=== PATIENT | male | born 1975 | race African-American/Black ===

== ENCOUNTER 2017-09-25 08:42 | Inpatient (IN) | payer BC ==
[2017-09-23 16:42] VITALS: BMI 47.9
[~2017-09-25 08:42] MED LIST: BUPIVACAINE HCL/PF 0.5% (5MG/ML) 10 ML VIAL IJ ONE
[2017-09-25] MEDS ORDERED: ROCURONIUM BROMIDE 50 MG/5 ML VIAL ONE ×2 (10:03→11:16)
[2017-09-25] MEDS ORDERED: SUCCINYLCHOLINE CHLORIDE 200 MG/10 ML VIAL ONE (10:03)
[2017-09-25] MEDS ORDERED: DEXAMETHASONE SOD PHOSPHATE 4 MG/1 ML VIAL ONE (10:04)
[2017-09-25] MEDS ORDERED: LIDOCAINE HCL/PF 2% SDV 5ML VIAL ONE (10:04)
[2017-09-25] MEDS ORDERED: ONDANSETRON 4 MG/2 ML VIAL ONE (10:04)
[2017-09-25] MEDS ORDERED: KETOROLAC TROMETHAMINE 30 MG/1 ML VIAL ONE (10:04)
[2017-09-25] MEDS ORDERED: GLYCOPYRROLATE 0.2 MG/1 ML VIAL ONE ×2 (10:07→11:19)
[2017-09-25] MEDS ORDERED: NEOSTIGMINE METHYLSULFATE 0.5 MG/ML - 10 ML MDV ONE ×2 (10:11)
[2017-09-25] MEDS ORDERED: ONDANSETRON 4 MG/2 ML VIAL IVPUSH PRN (10:30)
[2017-09-25] MEDS ORDERED: LACTATED RINGERS SOLUTION 1,000 ML IV SCH (10:30)
--- NOTE | 2017-09-25 10:42 | HP ---
DATE OF ADMISSION: 09/25/2017 CHIEF COMPLAINT: Morbid obesity. HISTORY OF PRESENT ILLNESS: The patient is a 41-year-old gentleman with a history of morbid obesity for many years despite multiple attempts at dietary weight loss. He received nutritional, psychological, and cardiac evaluation and clearance prior to undergoing elective sleeve gastrectomy surgery. PAST MEDICAL HISTORY: Significant for hypertension and GE reflux disease. PAST SURGICAL HISTORY: Significant for a Lap-Band and then removal of band and a sleeve gastrectomy in the past. REVIEW OF SYMPTOMS: Neurologic: Within normal limits. Gastrointestinal: Subjective complaint of heartburn. Cardiovascular: Within normal limit. Musculoskeletal: Within normal limit. MEDICATIONS: Include hydrochlorothiazide daily, AcipHex twice a day, quinapril hydrochloride twice a day, and Cartia once a day. ALLERGIES: Patient has no known allergies. PHYSICAL EXAMINATION: General: Awake, alert, obese male. HEENT: No masses noted. Lungs: Clear bilaterally. Heart: Regular. Sinus rhythm. Abdomen: Well-healed trocar incisions. Soft, nontender on palpation. Positive for obesity. Extremities: Within normal limits. IMPRESSION: Morbid obesity. PLAN: I will offer laparoscopic sleeve gastrectomy, possible open sleeve gastrectomy if necessary. REYNA FOSTER M.D. [id number]
[2017-09-25] MEDS ORDERED: MIDAZOLAM HCL 2 MG/2 ML SINGLE DOSE VIAL ONE (10:52)
[2017-09-25] MEDS ORDERED: PROPOFOL 20 ML ONE ×2 (10:54→11:07)
[2017-09-25] MEDS ORDERED: ceFAZolin SODIUM 1 GM VIAL IVPB ONE (11:11)
[2017-09-25] MEDS ORDERED: SODIUM CHLORIDE 0.9% P/F 10 ML VIAL IJ ONE (11:41)
[2017-09-25] MEDS ORDERED: ePHEDrine SULFATE 50 MG/1 ML AMPULE ONE (11:41)
[2017-09-25] MEDS ORDERED: BUPIVACAINE HCL/PF 0.5% (5MG/ML) 10 ML VIAL IJ ONE (12:50)
--- NOTE | 2017-09-25 13:05 | OP ---
Operative Note - Note: Operative Date: 09/25/17 Pre-Operative Diagnosis: Morbid Obesity. Hypertension. GE Reflux Disease Operation: Laparoscopic Vertical Sleeve Gastrectomy. Laparoscopic Lysis of Adhesions. Diagnostic Laparoscopy Findings: Large amount of adhesions surrounding stomach laterally and posteriorally secondary to previous surgery. Sleeve Gastrectomy performed with number [address] along lesser curvature Implants: none Post-Operative Diagnosis: Same as Pre-op (Abdominal Adhesions) Surgeon: Mark Larson Director Workforce Management: Paulo Stone Anesthesia: General Specimens Removed: Greater curve of stomach Estimated Blood Loss (mls): 50 Operative Report Dictated: Yes
[2017-09-25] MEDS ORDERED: BENZOIN/ALOE VERA/STORAX/TOLU 58 ML BOTTLE ONE (13:20)
[2017-09-25] MEDS ORDERED: METOCLOPRAMIDE HCL INJECTION 10 MG/2 ML VIAL ONE (13:33)
[2017-09-25] MEDS: METOCLOPRAMIDE HCL INJECTION 10 MG/2 ML VIAL IVPUSH SCH ×2 (13:34→18:52)
[2017-09-25 13:55] LABS: HEMATOCRIT 46.9 % (35.4-49); HEMOGLOBIN 15.5 GM/dL (11.7-16.9); MCH 30.8 pg (25.7-33.7); MCHC 33.1 g/dl (32.0-35.9); MEAN CELL VOLUME 93.1 fl (80-96); MEAN PLT VOLUME 9.2 fl (7.5-11.1); PLATELET COUNT 171 K/MM3 (134-434); RBC 5.04 M/mm3 (4.00-5.60); RDW 13.7 % (11.9-15.9); WHITE BLOOD COUNT 8.4 K/mm3 (4.0-10.0)
--- NOTE | 2017-09-25 14:19 | OP ---
DATE OF OPERATION: 09/25/2017 PREOPERATIVE DIAGNOSES: 1. Morbid obesity. 2. Hypertension. 3. Gastroesophageal reflux disease. POSTOPERATIVE DIAGNOSES: 1. Morbid obesity. 2. Hypertension. 3. Gastroesophageal reflux disease. 4. Abdominal adhesion. PROCEDURES PERFORMED: 1. Laparoscopic vertical sleeve gastrectomy. 2. Laparoscopic lysis of adhesions. 3. Diagnostic laparoscopy. OPERATING SURGEON: Mark Larson MD MANAGER DRIVE: Paulo Stone MD ANESTHESIA: General. OPERATIVE PROCEDURE: The patient was brought into the operating room and placed on the OR table in the supine position. All precautions were taken initially including padding for the back and the feet and Venodyne boots were placed on both lower extremities. At that point, the abdomen was prepped and draped in the usual manner. A Veress needle was placed in the midline above the umbilicus and a pneumoperitoneum was established. At that point, a No. 5 bladeless trocar was placed in the left upper quadrant under laparoscopic guidance and safely placed into the left upper quadrant. Using that as a guide, a No. 15 bladeless trocar was placed in the midline in the supraumbilical position and a No. 5 bladeless trocar in the right upper quadrant. At that point, another No. 5 bladeless trocar was placed in the left upper quadrant and the No. 5 in the left upper quadrant was now replaced with the No. 12 trocar in order to fit a larger camera. There were adhesions noted between the omentum and in the right upper quadrant midline near the falciform. These were lysed with dissection with the LigaSure device. Once they were completely lysed, all adhesions were free in the upper abdomen. At this point, a Radha liver retractor was placed in the epigastrium to retract the left lobe of the liver. The patient was then placed in 20-degree reverse Trendelenburg position. There were noted to be adhesions from the patient's previous surgery between the undersurface of the liver and the proximal portion of the stomach by the esophagogastric junction. These adhesions were lysed with sharp dissection with the laparoscopic scissor. Care was taken not to cause any injury to either the liver or the stomach wall. Once this was done, the stomach was now in better view and dissection was now going to begin for the sleeve gastrectomy. The pylorus was noted in the distal stomach and 6 cm proximally. Here, the operating surgeon lifted the stomach towards the anterior abdominal wall where the bilingual office assistant surgeon retracted gastrocolic ligament inferiorly. There were adhesions on the stomach wall from the patient's previous surgery. The LigaSure was used to dissect the gastrocolic ligament and the omentum off the stomach wall. Attempts to get into the lesser sac. Numerous attempts were made, but were difficult and could not be done because of the extensive scarring on the posterior wall of the stomach to the rectal perineum from the previous surgery. The pancreas was noted in view and the pancreas was very gently dissected lower down as the stomach wall posteriorly was exposed. Dissection now continued with the LigaSure up the greater curvature dissecting the omentum and any other vessels off of the stomach. Again this was tedious because of the amount of scarring both on the posterior surface and on the lateral surface of the stomach. In the area of the superior pole spleen, the final attachments between the omentum and the greater curvature were removed and now the greater curvature was now completely detached from all attachments. Attention was now directed to the posterior wall of the stomach where there continued to be a large amount of adhesions. The adhesions were easily dissected with blunt dissection with the laparoscopic instruments with the operating and the bilingual office assistant surgeon and also some sharp dissection was used. Once the stomach wall was now completely exposed, the anesthesiologist who had placed a No. 36 bougie prior to the case and left it in the upper stomach now advanced it to about 50 cm so that it was in the antrum and going towards the pylorus. At this point, a series of gabrielle were going to be performed in order to complete the sleeve gastrectomy procedure. The first 4 gabrielle were black load gabrielle initially because the stomach was thickened not only in the antrum, but also along most of the body. These staplers were started 6 cm proximal to the pylorus and continued in the superior and vertical direction along the No. 36 bougie. This continued until in the upper part of the stomach by the fundus where the wall was thinner purple gabrielle were used also 6 cm in length and also along the bougie. Once the final staple was fired in the left upper quadrant, the greater curvature was now completely detached from the rest of the stomach. It should be noted that prior to firing the stapler, care was taken that the posterior wall was checked, that the posterior and anterior mai were equal and the bougie was visible and it could be felt on both the anterior and posterior surfaces. Also an area in the esophagogastric junction approximately 1-1.5 cm of serosa remained on the anterior and posterior surfaces. With the greater curvature now removed from the stomach, Dr. Stone, the Occupational Psychologist Surgeon, stepped out and performed an upper endoscopy. The details will be described in his procedure note, but it should be noted that he saw no evidence of bleeding from the staple line inside and he was able to pass the endoscope all way down to the antrum and towards the pylorus showing that there was no signs of obstruction. Saline was placed around the staple line and when he blew air into the stomach and distended, no signs of the bubbles and therefore no signs of loose gabrielle. At this point, first the specimen removed through the No. 15 trocar site in the middle and sent off the field as a specimen to Pathology. The No. 15 trocar site then was closed with the Endo Closure Device to prevent internal hernia and to prevent bleeding. Under direct vision, all trocars were removed and pneumoperitoneum was released. All trocars sites 0.25% Marcaine. They were all closed with 4-0 Biosyn in subcuticular fashion. The No. 15 trocar site in the midline was first closed with 3-0 Vicryl in the subcutaneous tissue, followed by 4-0 Biosyn in subcuticular fashion. Dressings were applied. Patient awoke from anesthesia and transferred out of the operating room to the recovery room in stable condition. Expected blood loss was 50 mL. Patient was transferred to the recovery room in stable condition. [place] [id number]
[2017-09-25 14:45] LABS: ALBUMIN 3.6 g/dl (3.4-5.0); ANION GAP 8 (8-16); BLOOD UREA NITROGEN 18 mg/dL (7-18); CALCIUM 8.7 mg/dL (8.5-10.1); CHLORIDE 100 mmol/L (98-107); CO2 28 mmol/L (21-32); GLUCOSE,RANDOM 147 mg/dL (74-106); POTASSIUM 3.9 mmol/L (3.5-5.1); SODIUM 136 mmol/L (136-145)
[2017-09-25] MEDS: SODIUM CHLORIDE 1,000 ML IV SCH (14:48)
[2017-09-25 14:57] LABS: ALK PHOS 63 U/L (45-117); BILIRUBIN,TOTAL 0.8 mg/dL (0.2-1.0); CREATININE 1.3 mg/dL (0.7-1.3); SGOT/AST 33 U/L (15-37); SGPT/ALT 38 U/L (12-78); TOT PROT 6.9 g/dl (6.4-8.2)
[2017-09-25] MEDS: HYDROmorphone HCL CARPU-JECT 2 MG/1 ML DISP.SYRIN IVPB PRN ×2 (16:19→20:56)
--- NOTE | 2017-09-25 17:45 | OP ---
Operative Note - Note: Operative Date: 09/25/17 Pre-Operative Diagnosis: Evaluate for leak/obstruction s/p sleeve gastrectomy Operation: Upper endoscopy/EGD Post-Operative Diagnosis: Other (No leak/obstruction) Surgeon: Paulo Stone Measurement Advisor: Mark Larson Anesthesia: General Specimens Removed: None Estimated Blood Loss (mls): 0 Operative Report Dictated: Yes
[2017-09-25] MEDS: FAMOTIDINE 20 MG/50 ML IVPB 20 MG/50 ML MG IVPB SCH (21:01)
[2017-09-26] MEDS: METOCLOPRAMIDE HCL INJECTION 10 MG/2 ML VIAL IVPUSH SCH ×4 (02:29→18:18)
[2017-09-26] MEDS: HYDROmorphone HCL CARPU-JECT 2 MG/1 ML DISP.SYRIN IVPB PRN ×2 (02:48→07:04)
[2017-09-26] MEDS: SODIUM CHLORIDE 1,000 ML IV SCH ×5 (02:53→21:36)
--- NOTE | 2017-09-26 07:01 | OP ---
DATE OF OPERATION: 09/25/2017 SURGEON: Ramsey Stone MD PREOPERATIVE DIAGNOSIS: Rule out leaks/obstruction after sleeve gastrectomy. POSTOPERATIVE DIAGNOSIS: No leak/obstruction. PROCEDURE: Upper endoscopy/esophagogastroduodenoscopy. . SPECIMEN: None. ESTIMATED BLOOD LOSS: None. ANESTHESIA: GET. REASONS/PROCEDURE: This is a 41-year-old gentleman who was undergoing a laparoscopic vertical sleeve gastrectomy with Dr. Mark Larson. In order to evaluate for leak/obstruction and to evaluate the staple line, an upper endoscopy was requested, and the endoscope was inserted into the patients mouth. The entirety of the esophagus, GE junction, gastric patch, and staple line were inspected. Hemostasis was noted. No leak or obstruction was noted. The stomach was fully suctioned, and the endoscope removed. The remainder of the procedure was continued. RAMSEY STONE M.D. [id number]
[2017-09-26 07:33] LABS: HEMATOCRIT 45.5 % (35.4-49); HEMOGLOBIN 15.1 GM/dL (11.7-16.9); MCHC 33.1 g/dl (32.0-35.9); MEAN CELL VOLUME 93.6 fl (80-96); MEAN PLT VOLUME 9.3 fl (7.5-11.1); PLATELET COUNT 178 K/MM3 (134-434); RBC 4.86 M/mm3 (4.00-5.60); RDW 13.3 % (11.9-15.9); WHITE BLOOD COUNT 8.2 K/mm3 (4.0-10.0)
[2017-09-26 08:01] LABS: ALBUMIN 3.3 g/dl (3.4-5.0); ANION GAP 6 (8-16); BLOOD UREA NITROGEN 14 mg/dL (7-18); CALCIUM 8.5 mg/dL (8.5-10.1); CHLORIDE 104 mmol/L (98-107); CO2 31 mmol/L (21-32); CREATININE 1.1 mg/dL (0.7-1.3); GLUCOSE,RANDOM 106 mg/dL (74-106); POTASSIUM 4.5 mmol/L (3.5-5.1); SGOT/AST 24 U/L (15-37); SGPT/ALT 32 U/L (12-78); SODIUM 141 mmol/L (136-145)
[2017-09-26 08:04] LABS: ALK PHOS 60 U/L (45-117); BILIRUBIN,TOTAL 0.9 mg/dL (0.2-1.0); TOT PROT 6.7 g/dl (6.4-8.2)
[2017-09-26] MEDS: ENOXAPARIN NA (PORCINE) 40 MG/0.4 ML DISP.SYRIN SQ SCH ×2 (11:02→21:35)
[2017-09-26] MEDS: FAMOTIDINE 20 MG/50 ML IVPB 20 MG/50 ML MG IVPB SCH ×2 (11:02→21:35)
--- NOTE | 2017-09-26 11:25 | PN ---
Progress Note (short form) - Note Progress Note: Anesthesia postop note 41 y/o m s/p GA for laparoscopic gastric sleeve POD#!, vss, aaox3, no complaints. No anesthesia complications.
[2017-09-26] MEDS ORDERED: oxyCODONE HCL 5 MG TABLET ONE (16:14)
[2017-09-26] MEDS: oxyCODONE HCL 5 MG TABLET PO PRN ×2 (16:17→21:36)
--- NOTE | 2017-09-26 16:24 | PATH ---
Surgical Pathology Report Patient Name: JOSE NIETO [facility]. Rec. #: [id number] /Age/Gender: 1975 (Age: 41) / M Account: [id number] Location: 4 PEDS/ADOL Taken: 09/25/2017 Received: 09/25/2017 Reported: 09/26/2017 Physicians: Makr Larson M.D. Specimen(s) Received GREATER CURVATURE STOMACH Clinical History Morbid obesity Final Diagnosis STOMACH, GREATER CURVATURE, LAPAROSCOPIC VERTICAL SLEEVE GASTRECTOMY: PORTION OF STOMACH WITH MILD CHRONIC GASTRITIS. IMMUNOHISTOCHEMICAL STAIN FOR H. PYLORI IS NEGATIVE. Electronically Signed Maria Selby M.D. Gross Description Received in formalin, labeled "greater curvature of stomach," is a 70 gram, 16.5 x 3.0 x 2.8 cm. portion of stomach with a stapled margin of resection. The serosa is larsen-moreno with minimal attached fat. The mucosa is larsen-pink with normal folds. No mucosal masses are identified. Safety Glass Installer sections are submitted in one cassette. /09/25/2017 [facility]09/25/2017
--- NOTE | 2017-09-26 16:57 | PN ---
Progress Note (short form) - Note Progress Note: POD#1 Afebrile; VSS P-70-80 BP-131/78 Pt doing well No N/V Ashly PO clear liquids- 2 oz PO TID P/E- Abd- All trocar sites clean, dry no cellulitis, no erythema WBC-8.2 H/H-15.1/45.5 UGI-no extravasation, no obstruction Contrast delayed in fundus, but passes thru P- PO clear liquids- 2 oz po tid Cont DVT prophylaxis OOB-ambulate
[2017-09-27] MEDS: METOCLOPRAMIDE HCL INJECTION 10 MG/2 ML VIAL IVPUSH SCH ×4 (01:25→21:22)
[2017-09-27] MEDS: FAMOTIDINE 20 MG/50 ML IVPB 20 MG/50 ML MG IVPB SCH (09:37)
[2017-09-27] MEDS: ENOXAPARIN NA (PORCINE) 40 MG/0.4 ML DISP.SYRIN SQ SCH (09:37)
[2017-09-27] MEDS ORDERED: HYDROCHLOROTHIAZIDE 12.5 MG CAPSULE (FP) PO SCH (10:15)
[2017-09-27] MEDS ORDERED: QUINAPRIL HCL 40 MG TABLET (FP) PO SCH (10:15)
[2017-09-27] MEDS ORDERED: QUINAPRIL HCL 20 MG TABLET (FP) ONE (10:31)
[2017-09-27 10:55] LABS: HEMATOCRIT 47.5 % (35.4-49); HEMOGLOBIN 15.6 GM/dL (11.7-16.9); MCH 30.9 pg (25.7-33.7); MCHC 32.8 g/dl (32.0-35.9); MEAN CELL VOLUME 94.2 fl (80-96); MEAN PLT VOLUME 9.1 fl (7.5-11.1); PLATELET COUNT 171 K/MM3 (134-434); RBC 5.04 M/mm3 (4.00-5.60); RDW 13.4 % (11.9-15.9); WHITE BLOOD COUNT 6.8 K/mm3 (4.0-10.0)
[2017-09-27 11:21] LABS: ALBUMIN 3.8 g/dl (3.4-5.0); ANION GAP 6 (8-16); BLOOD UREA NITROGEN 13 mg/dL (7-18); CALCIUM 8.6 mg/dL (8.5-10.1); CHLORIDE 103 mmol/L (98-107); CO2 29 mmol/L (21-32); GLUCOSE,RANDOM 81 mg/dL (74-106); POTASSIUM 3.9 mmol/L (3.5-5.1); SGOT/AST 31 U/L (15-37); SODIUM 138 mmol/L (136-145); TOT PROT 7.3 g/dl (6.4-8.2)
[2017-09-27 11:43] LABS: ALK PHOS 63 U/L (45-117); SGPT/ALT 42 U/L (12-78)
--- NOTE | 2017-09-27 12:10 | PN ---
Progress Note (short form) - Note Progress Note: Chief Complaint: Events noted, notes reviewed, denies any chest discomfort or dyspnea, asymptomatic atrial flutter/atrial fibrillation History of Present Illness: Seen and examined on telemetry. Full consult dictated Echocardiography performed recently June 2017 revealed normal LV function with LVEF of 57%, LA dilatation 4.4 cm, trace/mild MR and TR MPI study performed recently June 2017 revealed no ischemia with dilated LV and LVEF of 49% - Current Medication List Current Medications Diltiazem HCl (Cardizem Cd -) 240 mg PO DAILY [facility] Last Admin: 09/27/17 10:34 Dose: 240 mg Enoxaparin Sodium (Lovenox -) 40 mg SQ BID@0800,2000 [facility] Last Admin: 09/27/17 09:37 Dose: 40 mg Hydrochlorothiazide (Hctz -) 12.5 mg PO DAILY [facility] Last Admin: 09/27/17 10:34 Dose: 12.5 mg Hydromorphone HCl (Dilaudid Injection -) 0.5 mg IVPB Q4H PRN PRN Reason: PAIN Last Admin: 09/26/17 07:04 Dose: 0.5 mg Famotidine/Sodium Chloride (Pepcid 20 Mg Premixed Ivpb -) 20 mg in 50 mls @ 100 mls/hr IVPB BID [facility] Last Admin: 09/27/17 09:37 Dose: 100 mls/hr Sodium Chloride (Normal Saline -) 1,000 mls @ 50 mls/hr IV ASDIR [facility] Last Admin: 09/26/17 21:36 Dose: 50 mls/hr Metoclopramide HCl (Reglan Injection -) 10 mg IVPUSH Q6H [facility] Last Admin: 09/27/17 06:10 Dose: 10 mg Ondansetron HCl (Zofran Injection) 4 mg IVPUSH Q6H PRN PRN Reason: NAUSEA AND/OR VOMITING Oxycodone HCl (Roxicodone -) 5 mg PO Q4H PRN PRN Reason: PAIN SCALE 5-10 Last Admin: 09/26/17 21:36 Dose: 5 mg Quinapril HCl (Accupril -) 40 mg PO BID [facility] Last Admin: 09/27/17 10:34 Dose: 40 mg Review of Systems Cardiovascular: As noted above Respiratory: denies: denies: Cough or Sputum Production Gastrointestinal: denies: Nausea, Vomiting, Diarrhea, Constipation or Abdominal Discomfort Musculoskeletal: No Symptoms Reported Endocrine: No Symptoms Reported - Objective Vital Signs: Last Vital Signs Temp Pulse Resp BP Pulse Ox 98.3 F 64 16 141/88 98 09/27/17 06:00 09/27/17 06:00 09/27/17 06:00 09/27/17 06:00 09/26/17 21:00 Intake & Output 09/24/17 09/25/17 09/26/17 09/27/17 23:59 23:59 23:59 23:59 Intake Total 2950 3650 609 Output Total 2305 1600 300 Balance 645 2050 309 Weight 366 lb 6 oz 363 lb 6.4 oz Constitutional: No Distress, Awake, Alert and Oriented Respiratory: Scattered Rhonchi Bilaterally Cardiovascular: S1 S2 Irregularly Irregular No Murmurs Clicks or Gallops Gastrointestinal: Soft Benign Normal Bowel Sounds Ext: No Edema Intact Distal Pulses No Calf Tenderness Labs: CBC, BMP 09/27/17 10:40 09/27/17 10:40 Hepatic Panel Total Bilirubin 1.0 mg/dL (0.2-1.0) 09/27/17 10:40 AST 31 U/L (15-37) D 09/27/17 10:40 ALT 42 U/L (12-78) D 09/27/17 10:40 Alkaline Phosphatase 63 U/L (45-117) 09/27/17 10:40 Albumin 3.8 g/dl (3.4-5.0) 09/27/17 10:40 Assessment/Plan Assessment: 1. Paroxysmal atrial flutter/atrial fibrillation [id number] score of 1, recurrent asymptomatic arrhythmia, possible vagal mediation (LA dilatation 4.4 cm) 2. LV dilatation with probable diastolic LV dysfunction and class 0 NYHA classifcation LV failure 3. HTN 4. Post Laparoscopic Vertical Sleeve Gastrectomy, Laparoscopic Lysis of Adhesions 5. History of gastric banding post revision 6. History of GERD 7. Morbid obesity PLAN: 1. Initiate B-Blockers with Lopressor, IV Lopressor as needed 2. IV Cardizem to assist with rate control and D/C PO Cardizem 3. Continue Accupril 4. Initiate A/C at t his point despite [id number] score of 1 since it is recurrent and asymptomatic, unless re-initiation is absolutely contraindicated 5. Repeat echocardiography to evaluate LV size and function Aminata Aguilar M.D.
--- NOTE | 2017-09-27 12:45 | PN ---
Progress Note (short form) - Note Progress Note: POD#2 Afebrile Was called at 10:00 AM for pt with very rapid heart rate (130-190) Pt with history of atrial fibrillation Pt was ambulating and was not symptomatic BP remained stable Card consult answered by Dr Figueroa Presently pulse 100-115, still irregular Pt tolerating PO- 3 OZ PO TID No N/V WBC-6.8 (decreased) H/H-15.6/47.5 (stable P - Arrythmia management as per Cardiology Will hold D/C home Clear liquids- 3 OZ PO TID Continue DVT prophylaxis
--- NOTE | 2017-09-27 12:58 | EKG ---
Test Reason : Blood Pressure : / mmHG Vent. Rate : 160 BPM Atrial Rate : 153 BPM P-R Int : 000 ms QRS Dur : 088 ms QT Int : 298 ms P-R-T Axes : 000 -48 021 degrees QTc Int : 486 ms ATRIAL FIBRILLATION WITH RAPID VENTRICULAR RESPONSE WITH PREMATURE VENTRICULAR OR ABERRANTLY CONDUCTED COMPLEXES LEFT ANTERIOR FASCICULAR BLOCK NONSPECIFIC ST ABNORMALITY ABNORMAL ECG WHEN COMPARED WITH ECG OF 14-AUG-2017 09:13, ATRIAL FIBRILLATION HAS REPLACED SINUS RHYTHM VENT. RATE HAS INCREASED BY 94 BPM T WAVE INVERSION NO LONGER EVIDENT IN INFERIOR LEADS CLINICAL CORRELATION IS RECOMMENDED Confirmed by CANDELARIO DECKER, CYRUS ([id number]) on 09/27/2017 12:57:38 PM Referred By: Mark Larson Confirmed By:CYRUS PALOMINO MD
[2017-09-27] MEDS ORDERED: METOPROLOL TARTRATE 25 MG TABLET (FP) PO ONE (13:15)
[2017-09-27] MEDS ORDERED: dilTIAZem HCL 50 MG/10 ML - 10 ML VIAL IVPUSH ONE (13:15)
--- NOTE | 2017-09-27 13:16 | CONS ---
DATE OF CONSULTATION: 09/27/2017 REQUESTING PHYSICIAN: Mark Larson MD CHIEF COMPLAINT: Evaluation of asymptomatic cardiac arrhythmia. HISTORY OF PRESENT ILLNESS: History was obtained from the patient. A 41-year-old, morbidly obese male of descent with known history of paroxysmal atrial fibrillation, currently on no anticoagulation therapy, CHADS2-VASc score of 1, hypertensive cardiovascular disease, left ventricular cavity dilatation with questionable diastolic left ventricular dysfunction, and class 0 [place] Heart [employer] classification left ventricular failure, morbid obesity post gastric banding, post revision, who was admitted electively for purpose of gastric sleeve surgery which was performed September 25, 2017. Today, patient was scheduled to be discharged home, and upon ambulation, developed sudden onset of tachyarrhythmia. Electrocardiogram was performed which revealed evidence of paroxysmal atrial flutter/atrial fibrillation with rapid ventricular response. Patient currently is seated in a chair and denies any palpitations or dizziness. Patient does not report any prior history of chest discomfort. Patient denies any dyspnea, orthopnea, paroxysmal nocturnal dyspnea, or peripheral edema. Patient stated that in May or June 2017, he was diagnosed with paroxysmal atrial fibrillation. At which point, he was initiated on Xarelto therapy which was subsequently discontinued since sinus rhythm was regained spontaneously. PAST MEDICAL HISTORY: Paroxysmal atrial fibrillation, CHADS2-VASc score of 1, currently on no anticoagulation therapy; hypertensive cardiovascular disease; left ventricular cavity dilatation with questionable diastolic left ventricular dysfunction; morbid obesity post gastric banding, post revision, post gastric sleeve surgery. SOCIAL HISTORY: Denies tobacco abuse. FAMILY HISTORY: No family history of premature coronary artery disease or history of cardiac arrhythmia. ALLERGIES: None reported. MEDICAL THERAPY: At home included Cardizem CD 240 mg once a day, hydrochlorothiazide 12.5 mg once a day, Accupril 40 mg twice a day, AcipHex 20 mg twice a day. REVIEW OF SYSTEMS: Head and Neck: Denies headache, photophobia, blurring of vision. Respiratory: No cough or sputum production. Cardiovascular: As noted above. Gastrointestinal: Denies nausea, vomiting, diarrhea, abdominal discomfort. Genitourinary: No symptoms reported. Musculoskeletal: No symptoms reported. PHYSICAL EXAMINATION: Vital Signs: Blood pressure is 141/88 mmHg, pulse rate currently is 140 beats per minute, temperature 98.3. Head and Neck: Pupils equal, reactive to light and accommodation. Extraocular muscles are intact. Anicteric sclerae. Negative JVD. No bruit appreciated. Chest: Clear to auscultation and percussion. Cardiovascular: S1, S2. Irregularly irregular. No murmur, clicks, or gallops. Abdomen: Soft, benign. Normoactive bowel sounds. Extremities: Negative edema. Intact distal pulses. No calf tenderness. DIAGNOSTIC DATA: Electrocardiogram as noted above reveals atrial flutter/atrial fibrillation with rapid ventricular response. CBC revealed white cell count 6.8, hemoglobin 15.6, platelet count 171. Basic metabolic profile revealed sodium 138, potassium 3.9, BUN 13, creatinine 1.0, glucose 81, with normal liver profile. ASSESSMENT: 1. Paroxysmal atrial flutter/atrial fibrillation, CHADS2-VASc score of 1, recurrent asymptomatic arrhythmia, possible vagal mediation, left atrial measurement of 4.4 cm on echocardiography performed June 2017. 2. Left ventricular cavity dilatation with probable diastolic left ventricular dysfunction and class 0 [place] [employer] classification left ventricular failure. 3. Hypertensive cardiovascular disease. 4. Post laparoscopic vertical sleeve gastrectomy, laparoscopic lysis of adhesions. 5. History of gastric banding, post revision. 6. History of gastroesophageal reflux disease. 7. Morbid obesity. RECOMMENDATION: 1. Initiation of beta-sonny therapy with Lopressor. IV Lopressor to be administered as needed for rate control. 2. IV Cardizem to assist with rate control and discontinue p.o. Cardizem. 3. Continuation of Accupril therapy. 4. Initiation of anticoagulation therapy at this point despite patient's CHADS2-VASc score of 1 since it is recurrent and asymptomatic unless re-initiation is absolutely contraindicated. 5. Repeat echocardiography for evaluation of left ventricular size and function and left atrial measurement. Above was discussed in detail with patient's primary chemist steroids, [facility], Dr. Ethan Coyne. Thank you for the kind referral. CYRUS PALOMINO M.D. SUSANNA/[id number]
[2017-09-27] MEDS: RIVAROXABAN 20 MG TABLET PO SCH (13:28)
[2017-09-27] MEDS ORDERED: PT OWN MED DRAWER 7, Y5N ONE (15:46)
[2017-09-27] MEDS: SODIUM CHLORIDE 1,000 ML IV SCH (21:22)
[2017-09-27] MEDS: METOCLOPRAMIDE HCL 10 MG TABLET (FP) PO SCH (21:37)
[2017-09-27] MEDS: METOPROLOL TARTRATE 25 MG TABLET (FP) PO SCH (21:37)
[2017-09-27] MEDS: RANITIDINE HCL 150 MG TABLET (FP) PO SCH (21:37)
[2017-09-28] MEDS: METOCLOPRAMIDE HCL 10 MG TABLET (FP) PO SCH ×4 (06:29→23:15)
[2017-09-28] MEDS ORDERED: METOPROLOL TARTRATE 5 MG/5 ML VIAL IVPUSH ONE (07:31)
--- NOTE | 2017-09-28 08:38 | PN ---
Progress Note (short form) - Note Progress Note: Chief Complaint: Events noted, notes reviewed, denies any chest discomfort or dyspnea, asymptomatic atrial flutter/atrial fibrillation persists with periods of rapid ventricular response History of Present Illness: Seen and examined on telemetry. Events noted, notes reviewed, denies any chest discomfort or dyspnea, asymptomatic atrial flutter/atrial fibrillation persists with periods of rapid ventricular response Echocardiography performed recently June 2017 revealed normal LV function with LVEF of 57%, LA dilatation 4.4 cm, trace/mild MR and TR MPI study performed recently June 2017 revealed no ischemia with dilated LV and LVEF of 49% - Current Medication List Current Medications Hydromorphone HCl (Dilaudid Injection -) 0.5 mg IVPB Q4H PRN PRN Reason: PAIN Last Admin: 09/26/17 07:04 Dose: 0.5 mg Metoclopramide HCl (Reglan -) 10 mg PO Q6HPO [facility] Last Admin: 09/28/17 06:29 Dose: 10 mg Metoprolol Tartrate (Lopressor -) 25 mg PO BID [facility] Last Admin: 09/27/17 21:37 Dose: 25 mg Ondansetron HCl (Zofran Injection) 4 mg IVPUSH Q6H PRN PRN Reason: NAUSEA AND/OR VOMITING Oxycodone HCl (Roxicodone -) 5 mg PO Q4H PRN PRN Reason: PAIN SCALE 5-10 Last Admin: 09/26/17 21:36 Dose: 5 mg Quinapril HCl (Accupril -) 40 mg PO DAILY [facility] Ranitidine HCl (Zantac -) 150 mg PO BID [facility] Last Admin: 09/27/17 21:37 Dose: 150 mg Rivaroxaban (Xarelto -) 20 mg PO DAILY@1800 [facility] Last Admin: 09/27/17 13:28 Dose: 20 mg Review of Systems Cardiovascular: As noted above Respiratory: denies: denies: Cough or Sputum Production Gastrointestinal: denies: Nausea, Vomiting, Diarrhea, Constipation or Abdominal Discomfort Musculoskeletal: No Symptoms Reported Endocrine: No Symptoms Reported - Objective Vital Signs: Last Vital Signs Temp Pulse Resp BP Pulse Ox 98.8 F 166 H 20 126/74 96 09/28/17 06:00 09/28/17 07:45 09/28/17 06:00 09/28/17 07:45 09/27/17 21:00 Intake & Output 09/25/17 09/26/17 09/27/17 09/28/17 23:59 23:59 23:59 23:59 Intake Total 2950 3650 679 Output Total 2305 1600 300 Balance 645 2050 379 Weight 366 lb 6 oz 363 lb 6.4 oz 359 lb 12.8 oz Constitutional: No Distress, Awake, Alert and Oriented Respiratory: Clear to A&P Bilaterally Cardiovascular: S1 S2 Irregularly Irregular No Murmurs Clicks or Gallops Gastrointestinal: Soft Benign Normal Bowel Sounds Ext: No Edema Intact Distal Pulses No Calf Tenderness Labs: CBC, BMP 09/27/17 10:40 09/27/17 10:40 Assessment/Plan Assessment: 1. Paroxysmal atrial flutter/atrial fibrillation [id number] score of 1, recurrent asymptomatic arrhythmia, possible vagal mediation (LA dilatation 4.4 cm), persistent with periods of rapid ventricular response 2. LV dilatation with probable diastolic LV dysfunction and class 0 NYHA classifcation LV failure 3. HTN 4. Post Laparoscopic Vertical Sleeve Gastrectomy, Laparoscopic Lysis of Adhesions 5. History of gastric banding post revision 6. History of GERD 7. Morbid obesity PLAN: 1. Continue PO Lopressor, IV Lopressor as needed for rate control 2. Continue Accupril 3. Continue A/C with Xarelto at this point despite patient's [id number] score of 1 since it is recurrent and asymptomatic, unless continuation of A/C is absolutely contraindicated 4. Repeat echocardiography to evaluate LV size and function 5. Considering the above noted persistence of rapid atrial flutter/atrial fibrillation with rapid ventricular response will plan to proceed with elective synchronized cardioversion, since duration is less than 48 hours, no indications for NELY guidance, risk, benefits and alternatives were reviewed with the patient agreeable to proceed with above Aminata Aguilar M.D.
[2017-09-28 09:04] LABS: HEMATOCRIT 48.2 % (35.4-49); HEMOGLOBIN 15.9 GM/dL (11.7-16.9); MCH 30.6 pg (25.7-33.7); MCHC 32.9 g/dl (32.0-35.9); MEAN PLT VOLUME 8.9 fl (7.5-11.1); PLATELET COUNT 171 K/MM3 (134-434); RBC 5.19 M/mm3 (4.00-5.60); RDW 13.3 % (11.9-15.9)
[2017-09-28] MEDS ORDERED: PROPOFOL 20 ML ONE (09:17)
[2017-09-28] MEDS ORDERED: LIDOCAINE HCL 1%, 10 MG/ML (20ML VIAL) ONE (09:17)
[2017-09-28 09:26] LABS: ALBUMIN 3.4 g/dl (3.4-5.0); ALK PHOS 57 U/L (45-117); ANION GAP 7 (8-16); BILIRUBIN,TOTAL 1.1 mg/dL (0.2-1.0); BLOOD UREA NITROGEN 16 mg/dL (7-18); CALCIUM 8.8 mg/dL (8.5-10.1); CHLORIDE 101 mmol/L (98-107); CO2 28 mmol/L (21-32); CREATININE 1.2 mg/dL (0.7-1.3); GLUCOSE,RANDOM 78 mg/dL (74-106); POTASSIUM 4.1 mmol/L (3.5-5.1); SGOT/AST 19 U/L (15-37); SGPT/ALT 34 U/L (12-78); SODIUM 136 mmol/L (136-145)
[2017-09-28] MEDS ORDERED: PROPOFOL 200 MG/20 ML VIAL IVPUSH ONE (10:44)
[2017-09-28] MEDS ORDERED: QUINAPRIL HCL 20 MG TABLET (FP) ONE (10:57)
[2017-09-28] MEDS: RANITIDINE HCL 150 MG TABLET (FP) PO SCH ×2 (11:04→21:22)
[2017-09-28] MEDS: METOPROLOL TARTRATE 25 MG TABLET (FP) PO SCH ×2 (11:05→21:22)
[2017-09-28] MEDS: QUINAPRIL HCL 40 MG TABLET (FP) PO SCH (11:05)
--- NOTE | 2017-09-28 12:15 | EKG ---
Test Reason : Blood Pressure : / mmHG Vent. Rate : 063 BPM Atrial Rate : 063 BPM P-R Int : 144 ms QRS Dur : 092 ms QT Int : 418 ms P-R-T Axes : 037 -48 -19 degrees QTc Int : 427 ms SINUS RHYTHM WITH PREMATURE ATRIAL COMPLEXES WITH ABERRANT CONDUCTION POSSIBLE LEFT ATRIAL ENLARGEMENT LEFT ANTERIOR FASCICULAR BLOCK LEFT VENTRICULAR HYPERTROPHY ABNORMAL ECG WHEN COMPARED WITH ECG OF 27-SEP-2017 10:48, SINUS RHYTHM HAS REPLACED ATRIAL FIBRILLATION VENT. RATE HAS DECREASED BY 97 BPM T WAVE INVERSION NOW EVIDENT IN INFERIOR LEADS CLINICAL CORRELATION IS RECOMMENDED Confirmed by CYRUS PALOMINO MD ([id number]) on 09/28/2017 12:15:02 PM Referred By: Mark Larson Confirmed By:CYRUS PALOMINO MD
--- NOTE | 2017-09-28 14:14 | PN ---
Progress Note (short form) - Note Progress Note: POD#3 Afebrile;VSS Dr Aguilar note seen and appreciated Pt with no N/V Tolerating PO clear liquids- 3oz PO TID + sips of water P/E- Abd- band-aids off incisions. All sites healing well No cellulitis WBC-6.0 H/H-15.9/48.2 (all stable from previously) BUN/CR-16/1.2 (Range of CR 1.0-1.3) P- Continue PO clear liquids 3 oz 4-5 times per day Continue Cardiology management as per Dr Aguilar Continue present post-op care
[2017-09-28] MEDS ORDERED: PT OWN MED DRAWER 7, Y5N ONE (17:11)
[2017-09-28] MEDS: RIVAROXABAN 20 MG TABLET PO SCH (17:30)
[2017-09-29] MEDS: METOCLOPRAMIDE HCL 10 MG TABLET (FP) PO SCH ×2 (05:14→12:14)
[2017-09-29] MEDS ORDERED: QUINAPRIL HCL 20 MG TABLET (FP) ONE (10:12)
[2017-09-29] MEDS: QUINAPRIL HCL 40 MG TABLET (FP) PO SCH (10:35)
[2017-09-29] MEDS: RANITIDINE HCL 150 MG TABLET (FP) PO SCH (10:36)
[2017-09-29] MEDS: METOPROLOL TARTRATE 25 MG TABLET (FP) PO SCH (10:36)
--- NOTE | 2017-09-29 10:41 | PN ---
Progress Note, Physician History of Present Illness: No further recurrence of asymptomatic PAF post DCCV. - Current Medication List Current Medications: Active Medications Metoclopramide HCl (Reglan -) 10 mg PO Q6HPO [facility] Last Admin: 09/29/17 05:14 Dose: 10 mg Metoprolol Tartrate (Lopressor -) 25 mg PO BID [facility] Last Admin: 09/29/17 10:36 Dose: 25 mg Ondansetron HCl (Zofran Injection) 4 mg IVPUSH Q6H PRN PRN Reason: NAUSEA AND/OR VOMITING Oxycodone HCl (Roxicodone -) 5 mg PO Q4H PRN PRN Reason: PAIN SCALE 5-10 Last Admin: 09/26/17 21:36 Dose: 5 mg Quinapril HCl (Accupril -) 40 mg PO DAILY [facility] Last Admin: 09/29/17 10:35 Dose: 40 mg Ranitidine HCl (Zantac -) 150 mg PO BID [facility] Last Admin: 09/29/17 10:36 Dose: 150 mg Rivaroxaban (Xarelto -) 20 mg PO DAILY@1800 [facility] Last Admin: 09/28/17 17:30 Dose: 20 mg - Objective Vital Signs: Vital Signs Temperature 98.7 F 09/29/17 06:00 Pulse Rate 71 09/29/17 06:00 Respiratory Rate 20 09/29/17 06:00 Blood Pressure 118/60 09/29/17 06:00 O2 Sat by Pulse Oximetry (%) 100 09/28/17 21:00 Constitutional: Yes: No Distress, Calm Neck: Yes: Supple Cardiovascular: Yes: Regular Rate and Rhythm Respiratory: Yes: Regular, Diminished Gastrointestinal: Yes: Normal Bowel Sounds, Soft, Abdomen, Obese Edema: No Labs: CBC, BMP 09/28/17 09:00 09/28/17 09:00 - ....Imaging EKG: Report Reviewed (Tele: NSR without recurrence of PAF SR @ 63 PAC, LVH LAD) Problem List - Problems (1) Paroxysmal atrial fibrillation with rapid ventricular response Code(s): I48.0 - PAROXYSMAL ATRIAL FIBRILLATION (2) Hypertensive cardiopathy Code(s): I11.9 - HYPERTENSIVE HEART DISEASE WITHOUT HEART FAILURE Qualifiers: Heart failure presence: without heart failure Qualified Code(s): I11.9 - Hypertensive heart disease without heart failure (3) Obstructive sleep apnea on CPAP Code(s): G47.33 - OBSTRUCTIVE SLEEP APNEA (ADULT) (PEDIATRIC); Z99.89 - DEPENDENCE ON OTHER ENABLING MACHINES AND DEVICES (4) S/P bariatric surgery Code(s): Z98.84 - BARIATRIC SURGERY STATUS (5) Diastolic dysfunction without heart failure Code(s): I51.9 - HEART DISEASE, UNSPECIFIED Assessment/Plan 1. Paroxysmal atrial flutter/atrial fibrillation [id number] score of 1, recurrent asymptomatic arrhythmia, possible vagal mediation (LA dilatation 4.4 cm), persistent with periods of rapid ventricular response now in sinus rhythm post DCCV 2. LV dilatation with probable diastolic LV dysfunction and class 0 NYHA classifcation LV failure 3. HTN cardiomyopathy 4. Post Laparoscopic Vertical Sleeve Gastrectomy, Laparoscopic Lysis of Adhesions 5. History of gastric banding post revision 6. History of GERD 7. Morbid obesity with OSAS on cpap PLAN: 1. Continue Lopressor 25 bid 2. Continue Accupril 40 qd 3. Continue A/C with Xarelto 20 qd for 2 months duration for stunned atria post DCCV, consider change to antiplatelet if no recurrence on arrythmia monitoring as outpatient 4. Patient to f/u with Drs. Aguilar and Kyle of [facility] 5. To continue B-Kalie therapy and if arrhythmia recurs, consideration for antiarrhythmic therapy and future consideration for AF pulmonary vein isolation RFA, above was discussed in detail with the patient 6. f/u repeat echo results, emphasized importance of compliance with cpap
[2017-09-29] MEDS: oxyCODONE HCL 5 MG TABLET PO PRN (12:15)
--- NOTE | 2017-09-29 12:15 | PN ---
Progress Note (short form) - Note Progress Note: POD#4 Afebrile; VSS [facility] clearance note appreciated Pt OOB-in chair No N/V Ashly PO clear liquids All instructions regarding diet, shower, activity given to pt P- D/C home F/U with [facility] as per their instructions F/U with Bariatric office 10/08/17
[2017-09-29 12:58] VITALS: BP 156/91; PULSE 62; TEMP 98.5
== END 2017-09-29 14:10 | disposition home or self-care (01) | DRG 620 ==
LOC: JSAMEDAYSX 08:42 → EDSTATUS 11:30 → J4S 16:40 → JICU 09-28 09:15 → J4S 09-28 10:53
PROVIDERS: ADMIT Surgery; ATTEND Surgery
PROC: 0DJ08ZZ Inspection of Upper Intestinal Tract, Via Natural or Artificial Opening Endoscopic (ICD-10-PCS; 2017-09-25)
PROC: 0DB64Z3 Excision of Stomach, Percutaneous Endoscopic Approach, Vertical (ICD-10-PCS; principal; 2017-09-25 10:00)
PROC: 0DNW4ZZ Release Peritoneum, Percutaneous Endoscopic Approach (ICD-10-PCS; 2017-09-25 10:00)
DX: E66.01 Morbid (severe) obesity due to excess calories (principal); I48.92 Unspecified atrial flutter; Z68.42 Body mass index [BMI] 45.0-49.9, adult; I10 Essential (primary) hypertension; K21.9 Gastro-esophageal reflux disease without esophagitis; I49.8 Other specified cardiac arrhythmias; K66.0 Peritoneal adhesions (postprocedural) (postinfection); I48.91 Unspecified atrial fibrillation; I11.9 Hypertensive heart disease without heart failure; G47.33 Obstructive sleep apnea (adult) (pediatric)
CPT/HCPCS: 36415; 74241-TC-FY; 80053; 82550; 84484; 85027; 86850; 86900; 86901; 88307-TC; 93005; 93010; 93306-TC; 94010; 94760